=== PATIENT | female | born 1965 | race Caucasian/White ===

== ENCOUNTER 2017-02-19 16:59 | Outpatient (CLI) | payer OTHER ==
--- NOTE | 2017-02-20 13:09 | Ultrasound Report ---
PELVIC ULTRASOUND: 02/19/2017 HISTORY: Left lower quadrant pain. TECHNIQUE: Real-time scanning by the supervisor green end department with saved static images reviewed. Transabdominal approach only. FINDINGS: Uterus and right ovary are surgically absent. Left ovary measures 3.2 x 2.5 x 1.9 cm, volume 7.9 mL. In the area of clinical pain which corresponds to the left groin, no cystic or solid mass or obvious hernia is seen. The appearance is symmetric with the right groin. Multiple lymph nodes are seen in the groin bilaterally. IMPRESSION: NEGATIVE PELVIC ULTRASOUND STATUS POST HYSTERECTOMY AND RIGHT OOPHORECTOMY. NO ABNORMALITY IS SEEN IN THE LEFT GROIN TO ACCOUNT FOR THE PATIENT'S CLINICAL PAIN. JOB #: [id number] EXT JOB #: [id number]
== END 2017-02-19 17:00 | disposition home or self-care (01) ==
LOC: DI 16:59
PROVIDERS: ATTEND Specialist
DX: R10.32 Left lower quadrant pain (principal); Z90.710 Acquired absence of both cervix and uterus; Z90.721 Acquired absence of ovaries, unilateral
CPT/HCPCS: 76856

== ENCOUNTER 2017-03-30 10:52 | Outpatient (CLI) | payer OTHER ==
--- NOTE | 2017-03-31 00:49 | XRAY Report ---
EXAM: RIGHT ANKLE RADIOGRAPHY EXAM DATE: 03/30/2017 11:22 AM. CLINICAL HISTORY: Right Achilles tendon pain, nontraumatic COMPARISON: None. TECHNIQUE: 3 views. FINDINGS: Bones: Large plantar calcaneal spur. Small Achilles tendon insertion spur. No fractures or bone lesio ns. Joints: Normal. No effusion. No subluxations. The ankle mortise is normally aligned. Soft Tissues: Normal. No soft tissue swelling. IMPRESSION: 1. Calcaneal spurs. 2. Otherwise unremarkable right ankle. [facility] Referring Provider Line: [phone] SITE ID: [id number]
== END 2017-03-30 10:53 | disposition home or self-care (01) ==
LOC: DI 10:52
PROVIDERS: ATTEND Specialist
DX: M77.31 Calcaneal spur, right foot (principal)